=== PATIENT | male | born 1990 | race Caucasian/White ===

== ENCOUNTER → 2018-05-27 | Outpatient (CLI) | payer OTHER | END | disposition home or self-care (01) | LOC: SONOGRAMA 09:32 | DX: K76.0 Fatty (change of) liver, not elsewhere classified (principal) ==

== ENCOUNTER 2020-08-24 13:19 | Emergency (ER) | payer OTHER ==
[~2020-08-24] VITALS: Ht 175.3 cm; Wt 95.3 kg
[2020-08-24] MEDS ORDERED: ZITHROMAX500 MG PO (15:44)
[2020-08-24] MEDS ORDERED: TUSSIN DM SYRU118 ML PO (15:44)
[2020-08-24] MEDS ORDERED: IVERMECTIN3 MG PO (15:48)
== END 2020-08-24 15:57 | disposition home or self-care (01) ==
LOC: ER 13:19
DX: J06.9 Acute upper respiratory infection, unspecified (principal); R53.81 Other malaise; R50.9 Fever, unspecified; Z03.818 Encounter for observation for suspected exposure to other biological agents ruled out